=== PATIENT | male | born 1980 | race Caucasian/White ===

== ENCOUNTER 2017-11-08 20:35 | Emergency (ER) | payer OTHER, MEDICAID ==
[~2017-11-08] VITALS: Ht 180.3 cm; Wt 80.3 kg
[~2017-11-08 20:35] MED LIST: ACETAMINOPHEN-1 EAC1 PO; ADVIL200 MG PO; ALPRAZOLAM; AMOXICILLIN 50500 MG PO; AMOXICILLIN500 M1 PO; AMOXICILLIN875 MG PO; ANECREAM5 GM TP; CLEOCIN HCL150 MG PO; CLEOCIN HCL300 MG PO; CLONAZEPAM 1 MG1 M1 PO; COLACE100 MG PO; DOXYCYCLINE 10100 MG PO; FELDENE20 MG PO; FENOFIBRATE160 MG PO; FLEXERIL PO; HYDROCODONE-AP1 EAC6 PO; HYDROCODONE-APA1 TA1 PO; IBUPROFEN 800800 M1 PO; IBUPROFEN 800800 MG PO; IBUPROFEN200 M2; KEFLEX500 MG PO; LEVAQUIN 750 M750 MG PO; LIPITOR10 MG PO; LISINOPRIL10 MG PO; MEDROLDOSEPACK PO; METFORMIN HCL500 MG PO; NAPROXEN 500MG500 MG PO; NORCO 5-325 TA1 EACH PO; NORFLEX100 MG PO; PAXIL30 MG PO; PAXIL40 MG PO; PENICILLIN VK500 MG PO; RELAFEN500 MG PO; ROBAXIN 750 MG750 M1 PO; TUCKS HEMORRH28.3 GM RC; TYLENOL EX-STR500 M2 PO; ULTRAM ER100 MG PO; VENTOLIN HFA 1818 GM INH; VICODIN 5-5001 EACH PO; XANAX 1 MG TABLE1 MG PO; ZOLOFT50 MG PO
[2017-11-08 20:51] VITALS: BP 106/76
[2017-11-08] MEDS ORDERED: QUETIAPINE FUM100 MG PO (21:00)
[2017-11-08] MEDS ORDERED: TIZANIDINE HCL4 MG PO (21:00)
[2017-11-08] MEDS ORDERED: SUBOXONE 12 MG1 EACH SUBLING (21:01)
[2017-11-08] MEDS ORDERED: ZANAFLEX4 MG PO (21:53)
[2017-11-08] MEDS ORDERED: NAPROSYN500 MG PO (21:53)
[2017-11-08] MEDS ORDERED: MEDROLDOSEPACK PO (21:53)
== END 2017-11-08 22:15 | disposition home or self-care (01) ==
LOC: M.ERS 20:35
DX: M79.605 Pain in left leg (principal); M54.32 Sciatica, left side; G89.29 Other chronic pain; I10 Essential (primary) hypertension; E11.9 Type 2 diabetes mellitus without complications; E78.00 Pure hypercholesterolemia, unspecified; F32.9 Major depressive disorder, single episode, unspecified; F41.9 Anxiety disorder, unspecified; F90.9 Attention-deficit hyperactivity disorder, unspecified type; Z88.0 Allergy status to penicillin; Z88.2 Allergy status to sulfonamides

== ENCOUNTER 2018-02-16 13:48 | Emergency (ER) | payer OTHER, MEDICAID ==
[~2018-02-16] VITALS: Ht 180.3 cm; Wt 83.9 kg
[~2018-02-16 13:48] MED LIST changes: +NAPROSYN500 MG PO; +QUETIAPINE FUM100 MG PO; +SUBOXONE 12 MG1 EACH SUBLING; +TIZANIDINE HCL4 MG PO; +ZANAFLEX4 MG PO
[2018-02-16] MEDS ORDERED: BENTYL 20 MG TA20 M1 PO (14:01)
[2018-02-16] MEDS ORDERED: QUETIAPINE FUM100 MG PO (14:01)
[2018-02-16] MEDS ORDERED: FLEXERIL PO (14:02)
[2018-02-16] MEDS ORDERED: VENTOLIN HFA 1818 GM INH (14:13)
[2018-02-16] MEDS ORDERED: LEVAQUIN 500 M500 M9 PO (14:13)
[2018-02-16 14:22] VITALS: BP 114/65
== END 2018-02-16 14:23 | disposition home or self-care (01) ==
LOC: M.ERS 13:48
DX: J18.9 Pneumonia, unspecified organism (principal); F32.9 Major depressive disorder, single episode, unspecified; F41.9 Anxiety disorder, unspecified; E78.5 Hyperlipidemia, unspecified; I10 Essential (primary) hypertension; E11.9 Type 2 diabetes mellitus without complications; K21.9 Gastro-esophageal reflux disease without esophagitis; Z88.1 Allergy status to other antibiotic agents; Z88.0 Allergy status to penicillin

== ENCOUNTER 2018-10-23 15:02 | Emergency (ER) | payer OTHER, MEDICAID ==
[~2018-10-23] VITALS: Ht 180.3 cm; Wt 74.8 kg
[~2018-10-23 15:02] MED LIST changes: +BENTYL 20 MG TA20 M1 PO; +LEVAQUIN 500 M500 M9 PO
[2018-10-23] MEDS ORDERED: IBUPROFEN 600600 M1 PO (15:10)
[2018-10-23] MEDS ORDERED: ZPAK PO (15:46)
[2018-10-23] MEDS ORDERED: ACCUNEB SO1.25 MG/1 INH (15:46)
[2018-10-23 15:56] VITALS: BP 120/51
== END 2018-10-23 15:56 | disposition home or self-care (01) ==
LOC: M.ERS 15:02
DX: J32.0 Chronic maxillary sinusitis (principal); R05 Cough; F32.9 Major depressive disorder, single episode, unspecified; F41.9 Anxiety disorder, unspecified; F90.9 Attention-deficit hyperactivity disorder, unspecified type; E78.5 Hyperlipidemia, unspecified; I10 Essential (primary) hypertension; E11.9 Type 2 diabetes mellitus without complications; K21.9 Gastro-esophageal reflux disease without esophagitis; F17.210 Nicotine dependence, cigarettes, uncomplicated; Z88.0 Allergy status to penicillin; Z88.2 Allergy status to sulfonamides

== ENCOUNTER → 2018-11-26 | Outpatient (CLI) | payer OTHER, MEDICAID ==
[~2018-11-26] MED LIST changes: +ACCUNEB SO1.25 MG/1 INH; +IBUPROFEN 600600 M1 PO; +ZPAK PO
[2018-11-26 11:56] LABS: ABSOLUTE BASOPHILS 0.1 thou/uL (0.0-0.2); ABSOLUTE EOSINOPHILS 0.1 thou/uL (0.0-0.7); ABSOLUTE LYMPHOCYTES 1.9 thou/uL (0.8-5.3); ABSOLUTE MONOCYTES 0.3 thou/uL (0.0-1.2); ABSOLUTE NEUTROPHILS 1.9 thou/uL (1.6-8.1); BASOPHILS 1.3 %; EOSINOPHILS 3.2 %; HEMOGLOBIN 11.9 gm/dL (14.0-18.0); LYMPHOCYTES 44.6 %; MCH 31.4 pg (26.0-34.0); MCHC 34.1 g/dL (28.0-37.0); MONOCYTES 6.7 %; MPV 9.2 fl. (7.2-11.1); NUCLEATED RBCS 0 /100WBC; PLATELET COUNT* 236 thou/uL (150-400); POLYS 44.2 %; RDW-CV 14.8 % (10.5-14.5); WBC 4.2 thou/uL (4.0-11.0)
[2018-11-26 12:06] LABS: ALBUMIN 3.9 g/dL (3.4-5.0); ALKALINE PHOSPHATASE 28 U/L (46-116); ANION GAP 6 mmol/L (7-16); BUN 14 mg/dL (7-18); CALCIUM 9.4 mg/dL (8.5-10.1); CHLORIDE 101 mmol/L (98-107); CHOLESTEROL 95 mg/dL (<200); CO2 29 mmol/L (21-32); CREATININE 1.1 mg/dL (0.6-1.3); GLUCOSE 96 mg/dL (70-99); HDL CHOLESTEROL 11 mg/dL (>40); LDL CHOLESTEROL 60 mg/dL (<100); POTASSIUM 4.2 mmol/L (3.5-5.1); SGOT 53 U/L (15-37); SGPT 40 U/L (30-65); SODIUM 136 mmol/L (136-145); TC:HDL 8.6 Ratio (Not establshd); TOTAL BILIRUBIN 0.4 mg/dL (<0.1-1.0); TOTAL PROTEIN 7.1 g/dL (6.4-8.2); TRIGLYCERIDE 120 mg/dL (<150); VLDL 24 mg/dL (<40)
[2018-11-26 12:07] LABS: SERUM ASSESSMENT Clear
[2018-11-26 23:08] LABS: GLYCOHEMOGLOBIN (HGB A1C) 4.9 % (4.8-5.6)
== END ==
LOC: M.LAB 11:23
PROVIDERS: Family Medicine
DX: E11.65 Type 2 diabetes mellitus with hyperglycemia (principal); K21.9 Gastro-esophageal reflux disease without esophagitis; D51.0 Vitamin B12 deficiency anemia due to intrinsic factor deficiency; F31.30 Bipolar disorder, current episode depressed, mild or moderate severity, unspecified; I10 Essential (primary) hypertension

== ENCOUNTER 2019-01-25 10:09 | Emergency (ER) | payer OTHER, MEDICAID ==
[~2019-01-25] VITALS: Ht 180.3 cm; Wt 72.6 kg
[2019-01-25] MEDS ORDERED: LIDOCAINE VISC100 ML SWISH&SPIT (10:38)
[2019-01-25] MEDS ORDERED: IBUPROFEN 600600 M1 PO (10:38)
[2019-01-25] MEDS ORDERED: CLEOCIN HCL150 MG PO (10:38)
[2019-01-25 10:45] VITALS: BP 106/58
== END 2019-01-25 10:46 | disposition home or self-care (01) ==
LOC: M.ERS 10:09
DX: K08.89 Other specified disorders of teeth and supporting structures (principal); F32.9 Major depressive disorder, single episode, unspecified; F41.9 Anxiety disorder, unspecified; F90.9 Attention-deficit hyperactivity disorder, unspecified type; E78.5 Hyperlipidemia, unspecified; I10 Essential (primary) hypertension; E11.9 Type 2 diabetes mellitus without complications; K21.9 Gastro-esophageal reflux disease without esophagitis; Z88.2 Allergy status to sulfonamides; Z88.0 Allergy status to penicillin

== ENCOUNTER → 2020-03-12 | Outpatient (CLI) | payer OTHER, MEDICAID ==
[~2020-03-12] MED LIST changes: +LIDOCAINE VISC100 ML SWISH&SPIT
== END ==
LOC: M.LAB 10:28
PROVIDERS: ATTEND Orthopaedic Surgery
DX: Z01.812 Encounter for preprocedural laboratory examination (principal); S83.241A Other tear of medial meniscus, current injury, right knee, initial encounter; X58.XXXA Exposure to other specified factors, initial encounter; Y93.89 Activity, other specified; Y92.89 Other specified places as the place of occurrence of the external cause; Y99.8 Other external cause status

== ENCOUNTER 2020-06-23 12:55 | Emergency (ER) | payer OTHER, MEDICAID ==
[~2020-06-23] VITALS: Ht 180.3 cm; Wt 71.7 kg
[2020-06-23] MEDS ORDERED: IBUPROFEN 800800 M1 PO (13:29)
[2020-06-23] MEDS ORDERED: CLEOCIN HCL300 MG PO (13:29)
[2020-06-23] MEDS ORDERED: NORCO 5-325 TA1 EAC2 PO (13:29)
[2020-06-23 13:49] VITALS: BP 107/48
== END 2020-06-23 13:50 | disposition home or self-care (01) ==
LOC: M.ERS 12:55
DX: K04.7 Periapical abscess without sinus (principal); J06.9 Acute upper respiratory infection, unspecified; E78.5 Hyperlipidemia, unspecified; I10 Essential (primary) hypertension; K21.9 Gastro-esophageal reflux disease without esophagitis; F12.90 Cannabis use, unspecified, uncomplicated; Z88.0 Allergy status to penicillin; Z88.2 Allergy status to sulfonamides; Z79.899 Other long term (current) drug therapy; Z98.890 Other specified postprocedural states

== ENCOUNTER 2020-07-29 09:34 | Emergency (ER) | payer OTHER, MEDICAID ==
[~2020-07-29] VITALS: Ht 180.3 cm; Wt 69.4 kg
[~2020-07-29 09:34] MED LIST changes: +NORCO 5-325 TA1 EAC2 PO
[2020-07-29 10:35] VITALS: BP 113/50
== END 2020-07-29 10:35 | disposition home or self-care (01) ==
LOC: M.ERS 09:34
DX: B34.9 Viral infection, unspecified (principal); Z20.828 Contact with and (suspected) exposure to other viral communicable diseases; I10 Essential (primary) hypertension; E11.9 Type 2 diabetes mellitus without complications; K21.9 Gastro-esophageal reflux disease without esophagitis; E78.5 Hyperlipidemia, unspecified; Z79.899 Other long term (current) drug therapy; Z88.0 Allergy status to penicillin; Z88.2 Allergy status to sulfonamides

== ENCOUNTER → 2020-12-28 | Outpatient (CLI) | payer OTHER, MEDICAID | LOC: M.RAD 16:57 | PROVIDERS: ATTEND Family Medicine | DX: M47.817 Spondylosis without myelopathy or radiculopathy, lumbosacral region (principal); M51.36 Other intervertebral disc degeneration, lumbar region ==

== ENCOUNTER → 2021-01-04 | Outpatient (CLI) | payer OTHER, MEDICAID | LOC: M.MRI 07:44 | PROVIDERS: ATTEND Family Medicine | DX: M51.37 Other intervertebral disc degeneration, lumbosacral region (principal); M54.41 Lumbago with sciatica, right side; M48.061 Spinal stenosis, lumbar region without neurogenic claudication; M47.816 Spondylosis without myelopathy or radiculopathy, lumbar region; M25.78 Osteophyte, vertebrae ==